=== PATIENT | male | born 1990 | race African-American/Black ===

== ENCOUNTER 2023-01-17 07:52 | Emergency (ER) | payer MEDICAID ==
[~2023-01-17] VITALS: Ht 182.9 cm; Wt 90.7 kg
--- NOTE | 2023-01-17 08:05 | NUR ---
PATIENT BIB GIRLFRIEND CC PERCOCET WITHDRAWAL. PATIENT STATES BEGAN TAKING PERCOCET 2 WEEKS AGO D/T DENTAL PAIN. PATIENT REPORTS INTAKE OF 10/325 MG, 3-4 TIMES PER DAY. LAST DOSE WAS 3 DAYS AGO. CURRECENTLY C/O DIFFICULTY SLEEPING X 3 DAYS. WIDESPREAD PAIN, DIARRHEA SINCE YESTERDAY. PATIENT NOTED VERY RESTLESS. REPORTS NO MED HX, NO SX HX, NO HOME MEDS. FINGERSTICK BLOOD GLUCOSE 109.
--- NOTE | 2023-01-17 08:05 | NUR ---
Placed in room 4 . Placed on design specialist, blood pressure machine and pulse oximeter. To gown for exam. Side rails up. Report given to Ab.
[2023-01-17 08:06] VITALS: BP_SYST 88
--- NOTE | 2023-01-17 08:07 | NUR ---
DR SINGH AT BEDSIDE
[2023-01-17] MEDS ORDERED: LORazepam 2 MG/ML VIAL IVP ONE (08:15)
[2023-01-17] MEDS ORDERED: NACL 0.9% 1,000 ML IV ONE (08:15)
--- NOTE | 2023-01-17 08:45 | NUR ---
20 GAUGE IV PLACED TO LEFT AC, BLOOD SAMPLES DRAWN FROM SITE & TAKEN TO LAB. AIVAN ADMINISTERED BY RN PER ORDERS. FLUIDS RUNNING. EKG COMPETED & REVIEWED BY DR SINGH. PATIENT ON CARDIAC MONITORING. GIRLFRIEND AT BEDSIDE, BED RAILS UP FOR PATIENT SAFETY.
[2023-01-17 08:57] LABS: BASOPHILS # (AUTO) 0.1 K/uL (0.0-0.2); BASOPHILS % (AUTO) 0.8 % (0.0-2.0); EOSINOPHILS % (AUTO) 0.4 % (0.0-4.0); HEMOGLOBIN 14.7 g/dL (14.0-18.0); LYMPHOCYTES # (AUTO) 2.2 K/uL (1.0-5.5); LYMPHOCYTES % (AUTO) 26.2 % (20.5-51.5); MEAN CORPUSCULAR HEMOGLOBIN 29 pg (27-31); MEAN CORPUSCULAR HGB CONC 33 % (32-36); MEAN CORPUSCULAR VOLUME 88 fL (79.0-98.0); MONOCYTES # (AUTO) 0.6 K/uL (0.0-1.0); MONOCYTES % (AUTO) 7.7 % (1.7-9.3); NEUTROPHILS # (AUTO) 5.4 K/uL (1.8-7.7); NEUTROPHILS % (AUTO) 64.9 % (40.0-70.0); PLATELET COUNT (AUTO) 227 K/uL (130-430); RED BLOOD CELL COUNT(AUTO) 4.99 MIL/uL (4.2-6.2); RED CELL DISTRIBUTION WIDTH 12.3 % (9.0-15.0); WHITE BLOOD COUNT (AUTO) 8.3 K/uL (4.8-10.8)
[2023-01-17 09:07] LABS: ANION GAP 12 (5-15); CALCIUM 9.2 mg/dL (8.4-11.0); CHLORIDE 100 mmol/L (98-107); CREATININE 1.08 mg/dL (0.55-1.30); GFR AFRICAN AMERICAN 102 mL/min (>90); GLUCOSE 116 mg/dL (70-99); UREA NITROGEN, BLOOD 12 mg/dL (8-21)
[2023-01-17 09:11] LABS: ACETAMINOPHEN < 1 ug/mL (1-30); ALANINE AMINOTRANSFERASE 139 U/L (12-78); ALBUMIN 4.2 g/dL (3.4-4.8); AMYLASE 61 U/L (0-100); ASPARTATE AMINOTRANSFERASE 53 U/L (10-37); LIPASE 99 U/L (73-393)
[2023-01-17] MEDS ORDERED: LORA-259 PO (09:20)
[2023-01-17 10:24] VITALS: BP_SYST 124
--- NOTE | 2023-01-17 10:24 | NUR ---
Patient given written and verbal discharge instructions and verbalizes understanding. ER MD discussed with patient the results and treatment provided. Patient in stable condition. ID arm band removed. IV catheter removed intact and dressing applied, no active bleeding. Rx of ATIVAN given. Patient educated on symptom management and to follow up with PMD. Pain Scale 3/10. Opportunity for questions provided and answered. Medication side effect fact sheet provided.
[2023-01-18] MEDS ORDERED: BUPR1FIL19 SL ×3 (20:56→23:31)
== END 2023-01-17 10:24 | disposition home or self-care (01) ==
LOC: SED 07:52
DX: F11.23 Opioid dependence with withdrawal (principal); R19.7 Diarrhea, unspecified; R10.9 Unspecified abdominal pain; F41.9 Anxiety disorder, unspecified; Z79.899 Other long term (current) drug therapy
CPT/HCPCS: 99284; 96360; 80053; 82150; 82550; 83690; 85025; 36415; 93005; G0481; J2060; J7030; G0480

== ENCOUNTER 2023-01-18 02:05 | Emergency (ER) | payer MEDICAID ==
[~2023-01-18 02:05] MED LIST: LORA-259 PO
--- NOTE | 2023-01-18 03:47 | NUR ---
Pt LWBS or triaged. MD and charge operator made aware
[2023-01-18] MEDS ORDERED: BUPR1FIL19 SL ×3 (20:56→23:31)
== END 2023-01-18 03:00 | disposition left against medical advice (07) ==
LOC: SED 02:05
DX: F10.239 Alcohol dependence with withdrawal, unspecified (principal); Z53.21 Procedure and treatment not carried out due to patient leaving prior to being seen by health care provider; Y90.6 Blood alcohol level of 120-199 mg/100 ml

== ENCOUNTER 2023-01-18 18:48 | Emergency (ER) | payer MEDICAID ==
[~2023-01-18] VITALS: Ht 182.9 cm; Wt 88.5 kg
[2023-01-18] MEDS ORDERED: BUPRENORPHINE HCL/NALOXONE HCL 2-0.5 MG 1 EACH TAB.SUBL SL ONE ×2 (19:00→21:00)
[2023-01-18 19:04] VITALS: BP_SYST 108
--- NOTE | 2023-01-18 19:15 | NUR ---
Patient to ER bed 3 to gown for evaluation. Side rails up.
[2023-01-18] MEDS ORDERED: LORazepam 2 MG/ML VIAL IVP ONE (19:45)
--- NOTE | 2023-01-18 20:11 | NUR ---
md azul at bedside to discuss findings and discharge plans.
--- NOTE | 2023-01-18 20:46 | NUR ---
Hung FRAZIER A BEDSIDE TO DISCUSS FINDING AND DISCHARGE PLANS
[2023-01-18] MEDS ORDERED: BUPR1FIL19 SL ×3 (20:56→23:31)
--- NOTE | 2023-01-18 21:09 | NUR ---
Patient given written and verbal discharge instructions and verbalizes understanding. ER MD FRAZIER discussed with patient the results and treatment provided. Patient in stable condition. ID arm band removed. IV catheter removed intact and dressing applied, no active bleeding. Rx of SUBOXONE given. Patient educated on pain management and to follow up with PMD. Pain Scale . Opportunity for questions provided and answered. Medication side effect fact sheet provided.
[2023-01-18 21:12] VITALS: BP_SYST 124
== END 2023-01-18 21:12 | disposition home or self-care (01) ==
LOC: SED 18:48
DX: F11.23 Opioid dependence with withdrawal (principal); F11.20 Opioid dependence, uncomplicated; M79.10 Myalgia, unspecified site; Z79.899 Other long term (current) drug therapy
CPT/HCPCS: 99283; 96374; J2060